=== PATIENT | male | born 1985 | race Caucasian/White ===

== ENCOUNTER 2021-06-01 09:25 | Emergency (ER) | payer OTHER ==
[~2021-06-01] VITALS: Ht 182.9 cm; Wt 97.1 kg
--- NOTE | 2021-06-01 10:22 | PHYS DOC ---
Adult General HPI HPI Patient is a 35-year-old male presenting for chest pain. This is an acute issue that was first noticed approximately 4 days prior without any known inciting event, trauma, exposure or other mechanism of injury. Nothing known makes better, physical activity makes worse. Describes pain as dull substernal pressure that sometimes radiates to back and bilateral flanks. Timing of symptoms has been inconsistent since onset. Only associated symptoms include recent upper respiratory issues but admits he is fully vaccinated x3 against COVID (Moderna) without recent testing or known sick contact. Admits approximately 4 days ago while driving he got lightheaded and pulled over and called EMS. He discloses that he finished a heavy workout and did drink preworkout before hand, he was found to be hypertensive otherwise hemody namically stable. Joint decision among all to discharge back home with supportive care practices and primary care follow-up with most likely cause being dehydration. Nonetheless, patient has experienced several episodes of palpitations ever since. Today without ingestion of excessive caffeine or other potential stimuli, patient reported recurrence of chest pain and palpitations that acutely exacerbated with exertion. Reports he walked up 3 flights of stairs causing him to be profoundly short of breath prompting him to come in for evaluation. 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 Review of Systems Review of Systems Fourteen body systems of review of systems have been reviewed. See HPI for pertinent positives and negative responses, other caal all other systems are negative, non-pertinent or non-contributory Physical Exam Physical Exam Constitutional: Well developed, well nourished, no acute distress, non-toxic appearance. HENT: Normocephalic, atraumatic, bilateral external ears normal, oropharynx moist, no oral exudates, nose normal. Eyes: PERRLA, EOMI, conjunctiva normal, no discharge. Neck: Normal range of motion, no tenderness, supple, no stridor. Cardiovascular: Heart rate regular, sinus rhythm, no murmurs rubs or gallops Lungs & Thorax: Bilateral breath sounds clear to auscultation Abdomen: Bowel sounds normal, soft, no tenderness, no masses, no pulsatile masses. Nonsurgical abdomen, no peritoneal signs Skin: Warm, dry, no erythema, no rash. Back: No tenderness, no CVA tenderness. Extremities: No tenderness, no cyanosis, no clubbing, ROM intact, no edema. Neurologic: Alert and oriented X 3, grossly normal motor & sensory function, no focal deficits noted. Psychologic: Anxious affect and mood Current Patient Data Lab Results Laboratory Tests Test 06/01/21 10:35 06/01/21 10:44 White Blood Count 5.0 x10^3/uL Red Blood Count 4.42 x10^6/uL Hemoglobin 13.2 g/dL Hematocrit 39.9 % Mean Corpuscular Volume 90 fL Mean Corpuscular Hemoglobin 30 pg Mean Corpuscular Hemoglobin Concent 33 g/dL Red Cell Distribution Width 14.2 % Platelet Count 268 x10^3/uL Neutrophils (%) (Auto) 46 % Lymphocytes (%) (Auto) 33 % Monocytes (%) (Auto) 14 % Eosinophils (%) (Auto) 6 % Basophils (%) (Auto) 2 % Neutrophils # (Auto) 2.3 x10^3uL Lymphocytes # (Auto) 1.7 x10^3/uL Monocytes # (Auto) 0.7 x10^3/uL Eosinophils # (Auto) 0.3 x10^3/uL Basophils # (Auto) 0.1 x10^3/uL D-Dimer (Ashlyn) 0.20 mg/L Sodium Level 140 mmol/L Potassium Level 4.5 mmol/L Chloride Level 105 mmol/L Carbon Dioxide Level 26 mmol/L Anion Gap 9 Blood Urea Nitrogen 17 mg/dL Creatinine 0.8 mg/dL Estimated GFR (Cockcroft-Gault) 111.3 Glucose Level 98 mg/dL Calcium Level 8.7 mg/dL Magnesium Level 1.8 mg/dL Creatine Kinase 249 U/L Troponin I High Sensitivity 6 ng/L VR-[id number]-Type Natriuretic Peptide 44 pg/mL Influenza Type A (Rapid) Negative Influenza Type B (Rapid) Negative SARS-CoV-2 Antigen (Rapid) Negative Current Medications Medications (Trade) Dose Ordered Sig/Blake Route PRN Reason Start Time Stop Time Status Last Admin Dose Admin Aspirin (Aspirin Chewable) 162 mg 1X ONCE PO 06/01/21 10:30 06/01/21 10:31 DC 06/01/21 10:57 Sodium Chloride 1,000 ml @ 1,000 mls/hr 1X ONCE IV 06/01/21 10:30 06/01/21 11:29 DC 2/8/22 10:58 EKG EKG EKG ordered and interpreted by myself at 0939 as sinus rhythm at 67 bpm, unremarkable intervals, right axis deviation, no acute ischemic findings, no [facility] Radiology/Procedures Radiology/Procedures EXAM: Chest, single view. HISTORY: Chest pain. COMPARISON: None. FINDINGS: A frontal view of the chest is obtained. There is no infiltrate, pleural effusion or pneumothorax. The heart is normal in size. IMPRESSION: No acute pulmonary finding. Electronically signed by: Raquel Luque MD (06/01/2021 10:49 AM) [id number] Heart Score C/O Chest Pain: Yes HEART Score for Chest Pain: HEART Score for Chest Pain Response (Comments) Value History Slighlty/Non-Suspicious 0 ECG Normal 0 Age < 45 0 Risk Factors No Risk Factors 0 Troponin < Normal Limit 0 Total 0 Risk Factors: Risk Factors: DM, Current or recent (<one month) smoker, HTN, HLP, family history of CAD, obesity. Risk Scores: Risk Factors: DM, Current or recent (<one month) smoker, HTN, HLP, family history of CAD, obesity. Course & Med Decision Making Course & Med Decision Making ABCs unremarkable. I disclosed entirety of ER findings and discussed most likely diagnosis of atypical chest pain. Other diagnoses were discussed with patient such as ACS, pneumonia, blood clots and other potentially life and/or limb threatening diagnoses but all deemed less likely causes of patient's presenta tion. Plan of care discussed at length with need for close outpatient follow-up to review today's ER visit stressed. Strict return precautions were also discussed at length with good understanding verbalized by patient. Patient voiced understanding and agreement with the plan. Patient knows to come back for repeat evaluation if concerning signs or symptoms present prior to outpatient follow-up. Hemodynamically stable, ambulatory and well-appearing at time of disposition. Dragon Disclaimer Dragon Disclaimer This electronic medical record was generated, in whole or in part, using a voice recognition dictation system. Departure Departure: Impression: Primary Impression: Chest pain Disposition: HOME / SELF CARE / HOMELESS Condition: STABLE Referrals: LEOLA PALMER (PCP) Additional Instructions: You were seen for chest pain. Your workup did not show any acute abnormalities today, but does not indicate that you do not have underlying cardiovascular disease. You do need to follow up with your primary doctor and potentially a highway engineering teacher for further evaluation and treatment. As disclosed, you would benefit from outpatient echocardiogram and consideration for event monitor. You should return to the ED if you develop worsening chest pain, shortness of breath, fever, abnormal sweating, leg swelling, or any other new or concerning symptoms. JESSEE LANDERS DO Jun 01, 2021 10:22
--- NOTE | 2021-06-01 10:32 | EKG ---
[address] [address] Test Date: 2021-06-01 Test Time: 09:34:57 Pat Name: JUAN PABLO CARPIO Department: Room: Gender: M Php Consultant: LEDY : 1985 Requested By: JESSEE LANDERS Order Number: [id number] Reading MD: Measurements Intervals [place] Rate: 67 P: 62 KS: 172 QRS: 103 QRSD: 92 T: 53 QT: 354 QTc: 377 Interpretive Statements SINUS RHYTHM RIGHTWARD AXIS OTHERWISE NORMAL ECG RI6.02 No previous ECG available for comparison
--- NOTE | 2021-06-01 10:51 | RAD ---
EXAM: Chest, single view. HISTORY: Chest pain. COMPARISON: None. FINDINGS: A frontal view of the chest is obtained. There is no infiltrate, pleural effusion or pneumo thorax. The heart is normal in size. IMPRESSION: No acute pulmonary finding. Electronically signed by: Raquel Luque MD (06/01/2021 10:49 AM) [id number]
[2021-06-01 10:54] LABS: BASO # 0.1 x10^3/uL (0.0-0.2); BASO % 2 % (0-3); EOS # 0.3 x10^3/uL (0.0-0.7); EOS % 6 % (0-3); HEMATOCRIT 39.9 % (39.0-53.0); HEMOGLOBIN 13.2 g/dL (13.0-17.5); LYMPH # 1.7 x10^3/uL (1.0-4.8); LYMPH % 33 % (24-48); MEAN CORPUSCULAR HEMOGLOBIN 30 pg (25-35); MEAN CORPUSCULAR HGB CONC 33 g/dL (31-37); MEAN CORPUSCULAR VOLUME 90 fL (79-100); MONO # 0.7 x10^3/uL (0.0-1.1); MONO % 14 % (0-9); NEUT # 2.3 x10^3uL (1.8-7.7); NEUT % 46 % (31-73); PLATELET COUNT 268 x10^3/uL (140-400); RED BLOOD COUNT 4.42 x10^6/uL (4.30-5.70); RED CELL DISTRIBUTION WIDTH 14.2 % (11.5-14.5)
[2021-06-01] MEDS: ASPIRIN CHEWABLE 81 MG TABLET. PO ONE (10:57)
[2021-06-01] MEDS: IV NORMAL SALINE 1,000ML 1,000 ML IV ONE (10:58)
[2021-06-01 11:01] LABS: CALCIUM 8.7 mg/dL (8.5-10.1); CREATININE 0.8 mg/dL (0.7-1.3); GFR 111.3; POTASSIUM 4.5 mmol/L (3.5-5.1)
[2021-06-01 11:07] LABS: INFLUENZA A PATIENT NEGATIVE (NEGATIVE); INFLUENZA B PATIENT NEGATIVE (NEGATIVE)
[2021-06-01 11:14] LABS: MAGNESIUM 1.8 mg/dL (1.8-2.4)
[2021-06-01 12:01] VITALS: BP 140/70
== END 2021-06-01 12:13 | disposition home or self-care (01) ==
LOC: ER 09:25
DX: R07.89 Other chest pain (principal); R42 Dizziness and giddiness; R00.2 Palpitations; Z20.822 Contact with and (suspected) exposure to COVID-19
CPT/HCPCS: 71045; 80048; 82550; 83735; 83880; 84484; 85025; 85379; 87428; 93005; 96360; 99285; C9803; J7030; U0003